=== PATIENT | male | born 1985 | race Caucasian/White ===

== ENCOUNTER 2022-10-01 18:35 | Emergency (ER) | payer BC ==
[2022-10-01] MEDS ORDERED: Alteplase 81 MG in Premix Bag 1 BAG IV ONE (19:37)
[2022-10-01] MEDS ORDERED: Alteplase 81 MG in Infusion 1 VIAL IV STA (19:37)
[2022-10-01] MEDS: Alteplase 2 MG Vial IVPUSH ONE ×2 (20:02)
[2022-10-01 20:05] LABS: PTT,PARTIAL THROMBOPLSTIN TIME 24.1 SEC (23.2-32.3)
[2022-10-01] MEDS ORDERED: Ondansetron 4 MG/2 ML SDV IVPUSH ONE (20:11)
[2022-10-01] MEDS ORDERED: Sodium Chloride 0.9% 1,000 ML IV SCH (20:15)
== END 2022-10-01 20:25 ==
LOC: CC.ED 18:35
DX: I63.9 Cerebral infarction, unspecified (principal); Z79.899 Other long term (current) drug therapy; Z20.822 Contact with and (suspected) exposure to COVID-19
CPT/HCPCS: 36415; 37195; 70450; 71045; 80053; 81003; 82947; 83735; 84484; 85025; 85610; 85730; 87635; 93005; 96374; 99285; J2405; J2997; J7030; U0002